=== PATIENT | male | born 1980 | race Hispanic/Latino ===

== ENCOUNTER 2017-10-04 14:12 | Emergency (ER) | payer SELFPAY ==
[2017-10-04] MEDS ORDERED: ISOVUE-370 76%-LOCM 1 ML ONE (14:33)
[2017-10-04 14:57] LABS: Bilirubin Negative (Negative); Blood, Urine Negative (Negative); Clarity CLOUDY (Clear); Glucose, Urine (Dipstick) Negative (Negative); Leukocyte Negative (Negative); Nitrite Negative (Negative); Protein, Urine (Dipstick) 30 mg/dL (Neg-Trace); Specific Gravity, Urine 1.029 (1.002-1.036); Urobilinogen 0.2 mg/dL (0.2-1.0)
[2017-10-04 14:59] LABS: Bacteria/HPF None Seen HPF (None Seen); Hyaline Casts/LPF 4-6 HYALINE CAST LPF (0-3 Hyaline); Pathc Cast-AUWi Flag 0.29 (0-2.49); RBC/HPF 0-3 HPF (0-3); Squamous Epithelial 0-3 HPF (0-3); WBC/HPF 0-3 HPF (0-3)
[2017-10-04 15:16] LABS: Crystals/HPF 2+ AMORPH PHOS HPF (Negative)
[2017-10-04 15:17] LABS: Renal Epithelial 0-3 HPF (0-3); Transitional Epithelial 0-3 HPF (0-3)
[2017-10-04 15:47] LABS: #Monocytes 0.5 thou/uL (0.11-0.59); #Neutrophils 12.6 thou/uL (1.40-6.50); %Basophils 0.1 % (0.0-1.0); %Eosinophils 0.1 % (0.0-10.0); %Lymphocytes 7.1 % (21.0-51.0); %Monocytes 3.4 % (0.0-10.0); %Neutrophils 89.3 % (42.0-75.0); Hemoglobin 15.6 g/dL (14.0-18.0); Mean Corpuscular HGB CONC 35.6 g/dL (32.0-36.0); Mean Corpuscular Hemoglobin 29.5 pg (27.0-31.0); Mean Corpuscular Volume 82.9 fL (78.0-98.0); Mean Platelet Volume 7.9 fL (7.4-10.4); Platelet Count 296 thou/uL (130-400); RBC Distribution Width 12.9 % (11.5-14.5); White Blood Cell (WBC) Count 14.1 thou/uL (4.8-10.8)
[2017-10-04 16:09] LABS: ALT (SGPT) 36 U/L (8-55); AST (SGOT) 28 U/L (5-34); Albumin 4.6 g/dL (3.5-5.0); Alkaline Phosphatase 83 U/L (40-150); Anion Gap 15 mmol/L (10-20); BUN (Urea Nitrogen) 10 mg/dL (8.9-20.6); Bilirubin, Total 0.5 mg/dL (0.2-1.2); Calc. Creatinine Clearance 0 mL/min (70-130); Calcium 9.7 mg/dL (7.8-10.44); Carbon Dioxide 24 mmol/L (22-29); Chloride 101 mmol/L (98-107); Estimated GFR-MDRD Greater than 90; Globulin 4.3 g/dL (2.4-3.5); Glucose 123 mg/dL (70-105); Lipase 22 U/L (8-78); Potassium 4.1 mmol/L (3.5-5.1); Protein, Total 8.9 g/dL (6.0-8.3); Sodium 136 mmol/L (136-145)
[2017-10-04] MEDS ORDERED: Lidocaine Viscous Sol 2% 15 ml UD Cup ONE (16:36)
[2017-10-04] MEDS ORDERED: Mag-Al 1200 mg/1200 mg/30 ML UDCUP ONE (16:36)
[2017-10-04] MEDS ORDERED: Ondansetron ODT 4 MG TAB ONE (16:36)
[2017-10-04] MEDS ORDERED: HYDROcodone/Acetaminophen 5/325 mg Tablet ONE (18:51)
--- NOTE | 2017-10-04 19:59 | CT ---
CT ABDOMEN AND PELVIS WITH IV CONTRAST: 10/04/2017 HISTORY: Upper abdominal pain. Stabbing epigastric pain since last night. COMPARISON: None available. FINDINGS: There is atelectasis present at the right lung base. Gas densities are seen within the fundus of the gallbladder lumen, probably related to calculi. Ther e is a tiny subcentimeter calculus also seen in the fundus of the gallbladder. There is a lower dens ity rounded structure seen in the region of the gallbladder neck, of uncertain etiology. This could be accentuation of gallbladder fluid, related to adjacent sludge or a low density appearing calculus. In addition, there is suggestion of trace pericholecystic fluid. A right upper quadrant ultrasound is suggested for further evaluation. The liver, spleen, pancreas, bilateral adrenal glands, kidneys, abdominal aorta, and urinary bladder demonstrate a normal CT appearance. A retrocecal appendix is visualized without CT findings to suggest appendicitis. The appendix is nor mal in caliber. A small fat-containing umbilical hernia is noted. No free fluid, fluid collection, or lymphadenopathy is seen in the abdomen or pelvis. IMPRESSION: 1. Cholelithiasis with suggestion of trace pericholecystic fluid. In addition, there is a lower den sity focus within the region of the gallbladder neck, of uncertain etiologt; a right upper quadrant u ltrasound is recommended for further evaluation. The common duct is normal in caliber on this exam. 2. No CT evidence of appendicitis. 3. Small fat-containing umbilical hernia. POS: [facility]
--- NOTE | 2017-10-07 13:46 | EKG ---
Test Reason : ABD PAIN Blood Pressure : / mmHG Vent. Rate : 059 BPM Atrial Rate : 059 BPM P-R Int : 158 ms QRS Dur : 108 ms QT Int : 444 ms P-R-T Axes : 014 -04 012 degrees QTc Int : 439 ms Sinus bradycardia Incomplete right bundle branch block Borderline ECG Confirmed by GEORGE SANTAMARIA, MELY ([id number]), restaurant expeditor ANDRES ABARCA ([id number]) on 10/07/2017 1:45:36 PM Referred By: Confirmed By:MELY VAZQUEZ MD
== END 2017-10-04 19:48 | disposition home or self-care (01) ==
LOC: ERS 14:12
DX: K80.20 Calculus of gallbladder without cholecystitis without obstruction (principal)
CPT/HCPCS: 36415; 74177; 80053; 81003; 81015; 83690; 85025; 93005; 96360; 96361; Q0162

== ENCOUNTER 2022-01-09 21:40 | Emergency (ER) | payer OTHER, SELFPAY ==
[2022-01-09] MEDS ORDERED: Ketorolac Tromethamine 30 MG/ML VIAL ONE (23:38)
== END 2022-01-10 00:20 | disposition home or self-care (01) ==
LOC: ERS 21:40
DX: S39.012A Strain of muscle, fascia and tendon of lower back, initial encounter (principal); M54.6 Pain in thoracic spine; V89.2XXA Person injured in unspecified motor-vehicle accident, traffic, initial encounter
CPT/HCPCS: 72070; 72100; 96372; J1885